=== PATIENT | male | born 1945 | race Caucasian/White ===

== ENCOUNTER → 2025-09-07 | Outpatient (CLI) | payer MEDICARE, SELFPAY ==
--- OUTSIDE RECORDS SUMMARY | 2025-09-07 12:01 | XMS RPT_ITS | CCD ---
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 Name Role Phone OneidaKrystinaTomasz Ref[facility] Mac Arenas Attending TOMASZ Caballero Attending [facility] TOMASZ Primary Care Unavailable CHAYNEYDALY Admitting Unavailable Allergies Allergy Classification Reported Allergen(s) Allergy Type Date of Onset Reaction(s) Facility (1 source) raNITIdine Drug Allergy 12-06-2024 [facility] Repository (1 source) raNITIdine Drug Allergy [facility] Repository Problems Problem Classification Problem Date Documented Da te Episodic/Chronic Disorders of lipid metabolism (1 source) Hyperlipidemia, unspecified; Translations: [Hyperlipidemia, unspecified] Onset: 08-06-2025 Chronic Essential hypertension (1 source) Essential (primary) hypertension; Translations: [Essential (primary) hypertension] Onset: 08-06-2025 Chronic Hyperplasia of prostate (1 source) Benign prostatic hyperplasia without lower urinary tract symptoms; Translations: [Benign prostatic hyperplasia without lower urinary tract symptoms] Onset: 08-06-2025 Chronic Results Test Name Value Interpretation Reference Range Facil ity CMP with eGFRon 08-06-2025 AGE 80 years Normal [facility] Comment on above: Performed By: #### 2 [id number] #### [facility],[address] [place] [address] 35538 Albumin [Mass/Vol] 3.6 g/dL Normal 3.4 - 5.[address] [facility] Comment on above: Performed By: #### 2 86731 #### [facility],[address] [place] [address] 20753 Albumin/Globulin [Mass ratio] 1.3 {ratio} Normal 0.9 - 1.6 [facility] Comment on above: Performed By: #### 2 49775 #### [facility],[address] [place] [address] 82965 ALK PHOS 95 U/L Normal 46 - 116 [facility] Comment on above: Performed By: #### 2 59334 #### [facility],[address] [place] [address] 21909 ALT [Catalytic activity/Vol] 22 U/L Normal 16 - 63 [facility] Comment on above: Performed By: #### 2 30458 #### [facility],[address] [place] [address] 40688 Anion gap [Moles/Vol] 6 mmol/L Low 10 - 20 [facility] Comment on above: Performed By: #### 2 74740 #### [facility],[address] [place] [address] 90972 AST [Catalytic activity/Vol] 20 U/L Normal 15 - 37 [facility] Comment on above: Performed By: #### 2 27084 #### [facility],[address] [place] [address] 56099 B/C RATIO 15 ratio Normal 0 - 30 [facility] Comment on above: Performed By: #### 2 51177 #### [facility],[address] [place] [address] 13501 Bilirubin [Mass/Vol] 0.9 mg/dL Normal 0.2 - 1.0 [facility] Comment on above: Performed By: #### 2 59425 #### [facility],[address] [place] [address] 02932 Calcium [Mass/Vol] 8.6 mg/dL Normal 8.5 - 10.[address] [facility] Comment on above: Performed By: #### 2 39357 #### [facility],[address] [place] [address] 25201 Chloride [Moles/Vol] 105 mmol/L Normal 98 - 107 [facility] Comment on above: Performed By: #### 2 75680 #### [facility],[address] [place] [address] 92681 CMP with eGFR Normal [facility] Comment on above: Result Comment: COMP REHENSIVE METABOLIC PANEL Performed By: #### 2 31230 #### [facility],[address] [place] [address] 85904 CO2 [Moles/Vol] 32.5 mmol/L High 21.0 - 32.0 [facility] Comment on above: Performed By: #### 2 99266 #### [facility],[address] [place] [address] 06523 Creatinine [Mass/Vol] 0.91 mg/dL Normal 0.70 - 1.30 [facility] Comment on above: Performed By: #### 2 59970 #### [facility],[address] [place] [address] 65286 GFR/1.73 sq M.predicted among non-blacks MDRD (S/P/Bld) [Vol rate/Area] mL/min/{1.73_m2} Normal 60 - 999 [facility] Comment on above: Performed By: #### 2 56494 #### [facility],[address] [place], [place] [address] Result Comment: ACCO RDING TO THE NATIONAL KIDNEY DISEASE EDUCATION PROGRAM(NKDE), A NORMAL eGFR IS A VALUE GREATER THAN OR EQUAL TO 60 ML/MIN/1.73 SQ METERS. CHRONIC KIDNEY DISEASE: <60mL/MIN/1.73 SQ METERS KIDNEY FAILURE: <15mL/MIN/1.73 SQ METERS THIS TEST SHOULD ONLY BE USED FOR PATIENTS 18 YEARS OF AGE AND OLDER. Globulin (S) [Mass/Vol] 2.8 g/dL Normal 1.5 - 3.8 [facility] Comment on above: Performed By: #### 2 38459 #### [facility],[address] [place] [address] 89507 Glucose [Mass/Vol] 107 mg/dL High 74 - [address] [facility] Comment on above: Performed By: #### 2 88767 #### [facility],[address] [place] [address] 90964 Potassium [Moles/Vol] 3.8 mmol/L Normal 3.5 - 5.1 [facility] Comment on above: Performed By: #### 2 15463 #### [facility],[address] [place] [address] 46427 Protein [Mass/Vol] 6.4 g/dL Normal 6.4 - 8.[address] [facility] Comment on above: Performed By: #### 2 18801 #### [facility],[address] [place] [address] 72863 Sodium [Moles/Vol] 140 mmol/L Normal 136 - [address] [facility] Comment on above: Performed By: #### 2 09020 #### [facility],[address] [place] [address] 20242 Urea nitrogen [Mass/Vol] 14 mg/dL Normal 7 - 18 [facility] Comment on above: Performed By: #### 2 16819 #### [facility],[address] [place] [address] 37859 LIPID PROFILEon 08-06-2025 Cholesterol [Mass/Vol] 118 mg/dL Normal 0 - 240 [facility] Comment on above: Performed By: #### 2 48525 #### [facility],[address] [place] [address] 80942 Cholesterol in HDL [Mass/Vol] 50 mg/dL Normal 40 - 60 [facility] Comment on above: Performed By: #### 2 81011 #### [facility],[address] [place] [address] 01999 Cholesterol in LDL [Mass/Vol] 59 mg/dL Normal 0 - 129 [facility] Comment on above: Performed By: #### 2 35633 #### [facility],[address] [place] [address] 70177 Cholesterol.total/C holesterol in HDL [Mass ratio] 2.4 {ratio} Normal 0.0 - 5.0 [facility] Comment on above: Performed By: #### 2 19723 #### [facility],[address] [place] [address] 09893 Lipid 1996 panel Normal [facility] Comment on above: Result Comment: LIPI D PROFILE Performed By: #### 2 40835 #### [facility],[address] [place] [address] 66950 Triglyceride [Mass/Vol] 44 mg/dL Normal 0 - 150 [facility] Comment on above: Performed By: #### 2 72856 #### [facility],[address] [place] [address] 06278 Surgery Visit Reporton 12-06 Surgery Visit Report [facility] [address] [place] [address]. [address] [place] [address] OFFICE VISIT Date of Service: 12/06/24 MR#: [id number] Acct: [id number] Name: JAMSHID SHEEHAN Peggy Rep #: [id number] : 1945 Provider: Dr. Mac nevarez MD Age/Sex: 79/M Location: [facility] Status: Signed Intake Vital Signs 12/06/24 14:09 Height 5 ft 7 in Weight: 182 lb BMI 28.5 BP 179/96 H Blood Pressure Location Rt brachial Position Sitting Respiration 17 Pulse 65 Pulse Source Monitor Pulse Oximetry (%) 97 Oxygen Delivery Method room air Intake Visit Reasons: VENTRAL HERNIA Chief Complaint: ventral hernia Is patient in pain?: No Allergies ranitidine Allergy (Mild, Verified 12/06/24 14:11) Rash Medications ???Medication ???Instructions ???Recorded ???Confirmed ???Type aspirin 81 mg tablet,delayed 81 mg PO QDAY 12/06/24 12/06/24 Hi story release (Adult Aspirin Regimen) atorvastatin 40 mg tablet 40 mg PO QDAY 12/06/24 12/06/24 Hi story finasteride 5 mg tablet 5 mg PO QDAY 12/06/24 12/06/24 His tory lisinopril 40 mg tablet 40 mg PO QDAY 12/06/24 12/06/24 Hi story sbbkqpcl-tqyaqa-ysl -flq-awk-tfiz-ryan tab PO QDAY 12/06/24 5 History 100 mg-100 mg-100 mg-125 mg tab (Tumersaid) Have you fallen in the past year?: No PFSH Medical History (Updated 12/06/24 @ 16:[address] Mac Khan MD) Rectus diastasis Heart attack Heart disease HTN (hypertension) Surgical History History of appendectomy H/O heart artery stent Family History Mother Cancer lung Social History Smoking Status: Never smoker HPI HPI HPI: The patient is a 79-year-old male who is being seen today for a possible ventral hernia. Patient states that recently when trying to sit upright from a supine position, he will noticed a linear bulge along the upper abdomen. This does not cause him any discomfort. Otherwise he states that his abdomen looks and feels normal. He presents today for further evaluation. He has had no previous abdominal surgeries involving his upper abdomen ROS General General: No weight change, appetite, fatigue, colon cancer, breast cancer or weakness HEENT HEENT: No difficulty swallowing, eye injury, eye surgery, swollen glands or hoarseness Endo Endocrine: No thyroid disease, diabetes mellitus, thyroid cancer, Hair loss, heat intolerance or cold intolerance Skin Skin: No rash or changing moles Musc Musculoskeletal: No back problems, arthritis, rheumatoid arthritis, gout or joint pain Cardio Cardiovascular: Yes heart disease, high blood pressure, heart attack and heart stent; No murmur, pacemaker, atrial fibrillation, palpitations, shortness of breat with exertion or chest pain Psych Psychiatric: No depression, anxiety or hearing voices Resp Respiratory: No shortness of breath, No sleep apnea, No cough, No COPD, No asthma, No emphysema and No wheezing Gastro Gastrointestinal: No abdominal pain, No nausea or vomiting, No diarrhea, No constipation, No blood in stool, No acid reflux, No hemorrhoids, No ulcers, No gallbladder problem and No black,tarry stools [place]illan Hematologic: No blood thinners, No blood disorders, No bleeding, No anemia and No blood clots Neuro Neurologic: No system reviewed and no additional complaints, except as documented, No as per HPI, No abnormal gait, No abnormal hearing, No abnormal movements, No abnormal speech, No behavioral changes, No burning sensations, No confusion, No convulsions, No disequilibrium, No dizziness, No localized weakness, No frequent falls, No headache(s), No lack of coordination, No loss of vision, No memory loss, No numbness, No other visual disturbances, No radicular pain, No restless legs, No sensory deficit, No syncope, No tingling, No tremor(s), No weakness and No other Exam Const General: cooperative, healthy appearing and comfortable [facility] Head: normal to inspection Eyes General: appearance normal, both eyes and all related structures Neck Neck: normal visual inspection Resp Effort Inspection: normal respiratory effort GI Other: Abdomen is soft, nontender nondistended. I had the patient go from a supine to an upright position, and clearly this demonstrated a rectus diastases. This was nontender. No obvious abdominal hernias were noted. Assessment and Plan Assessment and Plan (1) Rectus diastasis: Status: Acute Plan: The patient is a 79-year-old male who is being seen today for possible ventral hernia. On examination, he actually has a rectus diastases I explained to him that this is actually just a separation of the rectus (more content not included)... Normal [facility] COMPREHENSIVE METABOLIC PANE [facility] 02-16-2020 Albumin [Mass/Vol] 4.1 g/dL Normal 3.6-5.1 [facility] Comment on above: Performed By: #### 7 600, 78203 #### [facility] [id number] Mass Spectrometry Specialist: Domenic Ferris MD Albumin/Globulin [Mass ratio] 1.9 (calc) Normal 1.0-2.5 [facility] Comment on above: Performed By: #### 7 600, 97606 #### [facility] [address] Mass Spectrometry Specialist: Domenic Ferris MD ALP [Catalytic activity/Vol] 108 U/L Normal 35-144 [facility] Comment on above: Performed By: #### 7 600, 47802 #### [facility]-[address], [address] [place] [address] Mass Spectrometry Specialist: Domenic Ferris MD ALT [Catalytic activity/Vol] 16 U/L Normal 9-46 [facility] Comment on above: Performed By: #### 7 600, 86826 #### [facility]-[address], [address] [place] [address] Mass Spectrometry Specialist: Domenic Ferris MD AST [Catalytic activity/Vol] 19 U/L Normal 10-35 [facility] Comment on above: Performed By: #### 7 600, 58890 #### [facility]-[address], [address] [place] [address] Mass Spectrometry Specialist: Domenic Ferris MD Bilirubin [Mass/Vol] 1.1 mg/dL Normal 0.2-1.2 [facility] Comment on above: Performed By: #### 7 600, 22373 #### [facility]-[address], [address] [place] [address] Mass Spectrometry Specialist: Domenic Ferris MD Calcium [Mass/Vol] 9.0 mg/dL Normal 8.6-10.3 [facility] Comment on above: Performed By: #### 7 600, 99545 #### [facility] [address] Mass Spectrometry Specialist: Domenic Ferris MD Chloride [Moles/Vol] 106 mmol/L Normal 98-110 [facility] Comment on above: Performed By: #### 7 600, 81176 #### [facility] [address] Mass Spectrometry Specialist: Domenic Ferris MD CO2 [Moles/Vol] 28 mmol/L Normal 20-32 [facility] Comment on above: Performed By: #### 7 600, 09287 #### [facility]-[address], [address] [place] [address] Mass Spectrometry Specialist: Domenic Ferris MD Creatinine [Mass/Vol] 0.88 mg/dL Normal 0.70-1.18 [facility] Comment on above: Result Comment: For patients >49 years of age, the reference limit for Creatinine is approximately 13% higher for people identified as -Mongolian. Performed By: #### 7 600, 15738 #### [facility], [address] [place] [address] Mass Spectrometry Specialist: Domenic Ferris MD eGFR NON-AFR. FINNISH 85 mL/min/1.73m2 Normal > OR = 60 [facility] Comment on above: Performed By: #### 7 600, 00819 #### [facility]-[address], [address] [place] [address] Mass Spectrometry Specialist: Domenic Ferris MD GFR/1.73 sq M predicted among blacks MDRD (S/P/Bld) [Vol rate/Area] 98 mL/min/{1.73_m2} Normal > OR = 60 [facility] Comment on above: Performed By: #### 7 600, 83157 #### [facility], [address] [place] [address] Mass Spectrometry Specialist: Domenic Ferris MD Globulin (S) [Mass/Vol] 2.2 g/dL (calc) Normal 1.9-3.7 [facility] Comment on above: Performed By: #### 7 600, 49657 #### [facility] [address] Mass Spectrometry Specialist: Domenic Ferris MD Glucose [Mass/Vol] 99 mg/dL Normal 65-99 [facility] Comment on above: Result Comment: Fasting reference interval Performed By: #### 7 600, 99132 #### [facility], [address] [place] [address] Mass Spectrometry Specialist: Domenic Ferris MD Potassium [Moles/Vol] 4.0 mmol/L Normal 3.5-5.3 [facility] Comment on above: Performed By: #### 7 600, 64615 #### [facility], [address] [place] [address] Mass Spectrometry Specialist: Domenic Ferris MD Protein [Mass/Vol] 6.3 g/dL Normal 6.1-8.1 [facility] Comment on above: Performed By: #### 7 600, 66644 #### [facility]-[address], [address] [place] [address] Mass Spectrometry Specialist: Domenic Ferris MD Sodium [Moles/Vol] 141 mmol/L Normal 135-146 [facility] Comment on above: Performed By: #### 7 600, 02979 #### [facility]-[address], [address] [place] [address] Mass Spectrometry Specialist: Domenic Ferris MD Urea nitrogen [Mass/Vol] 11 mg/dL Normal 7-25 [facility] Comment on above: Performed By: #### 7 600, 78195 #### [facility]-[address], [address] [place] [address] Mass Spectrometry Specialist: Domenic Ferris MD Urea nitrogen/Creatinine [Mass ratio] NOT APPLICABLE Normal 6-22 [facility] Comment on above: Performed By: #### 7 600, 86344 #### [facility]-[address], [address] [place] [address] Mass Spectrometry Specialist: Domenic Ferris MD LIPID PANEL, [facility] Cholesterol [Mass/Vol] 132 mg/dL Normal <200 [facility] Comment on above: Performed By: #### 7 600, 44288 #### [facility], [address] [place] [address] Mass Spectrometry Specialist: Domenic Ferris MD Cholesterol in HDL [Mass/Vol] 41 mg/dL Normal > OR = 40 [facility] Comment on above: Performed By: #### 7 600, 13656 #### [facility]-[address], [address] [place] [address] Mass Spectrometry Specialist: Domenic Ferris MD Cholesterol in LDL [Mass/Vol] 77 mg/dL (calc) Normal [facility] Comment on above: Result Comment: Refe rence range: <100 Desirable range <100 mg/dL for primary prevention; <70 mg/dL for patients with CHD or diabetic patients with > or = 2 CHD risk factors. LDL-C is now calculated using the Elan-Fisher calculation, which is a validated novel method providing better accuracy than the Friedewald equation in the estimation of LDL-C. Elan HUTCHINSON et al. SIMONA. 2013;310(19): 8264-0964 (http://education.Epuramat/faq/LDF636) Performed By: #### 7 600, 49124 #### [facility]-[address], [address] [place] [address] Mass Spectrometry Specialist: Domenic Ferris MD Cholesterol.total/C holesterol in HDL [Mass ratio] 3.2 (calc) Normal <5.0 [facility] Comment on above: Performed By: #### 7 600, 60081 #### [facility]-[address], [address] [place] [address] Mass Spectrometry Specialist: Domenic Ferris MD NON HDL CHOLESTEROL 91 mg/dL (calc) Normal <130 [facility] Comment on above: Result Comment: For patients with diabetes plus 1 major ASCVD risk factor, treating to a non-HDL-C goal of <100 mg/dL (LDL-C of <70 mg/dL) is considered a therapeutic option. Performed By: #### 7 600, 42780 #### [facility]-[address], [address] [place] [address] Mass Spectrometry Specialist: Domenic Ferris MD Triglyceride [Mass/Vol] 68 mg/dL Normal <150 [facility] Comment on above: Performed By: #### 7 600, 33470 #### [facility]-[address], [address] [place] [address] Mass Spectrometry Specialist: Domenic Ferris MD Encounters Encounter Date Encounter Type Care Provider Facility Start: 08-06-2025 End: 08-06-2025 ambulatory [facility] Start: 12-06-2024 End: 12-06-2024 ambulatory [facility] Facility:[facility] Procedures Date Procedure Procedure Detail Performing Clinician Start: 08-06-2025 PSA screening [facility] Comment on above: Performed By: #### 2 86026 #### [facility],[address] [place] [address] Payers Date Payer Category Payer Self-pay 2024 Unknown [id number] 1945 Unknown [id number] Unknown [id number] Summary Purpose Family History No Family History Records FoundNo Family History Records FoundNo Family History Records Found Advance Directives No Advanced Directives Records FoundNo Advanced Directives Records FoundNo Advanced Directives Records Found Additional Source Comments (unrecognized sect ion and content) No Status Records FoundNo Status Records FoundNo Status Records Found INFORMATION SOURCE (unrecogn ized section and content) DATE CREATED AUTHOR 02/23/2020 [facility] DATE CREATED AUTHOR AUTHOR'S ORGANIZ ATION 12/06/2024 [facility] DATE CREATED AUTHOR AUTHOR'S ORGANIZ ATION 08/07/2025 [facility] FOR RECORDS PERTAINING TO PATIENTS WHO ARE OR HAVE BEEN ENROLLED IN A CHEMICAL DEPENDENCY/SUBSTANCEABUSE PROGRAM, SOME INFORMATION MAY BE OMITTED. This clinical summary was aggregated from multiple sources. Caution should be exercised in using it in the provision of clinical care. This summary normalizes information from multiple sources, and as a consequence, information in this document may materially change the coding, format and clinical context of patient data. In addition, data may be omitted in some cases. CLINICAL DECISIONS SHOULD BE BASED ON THE PRIMARY CLINICAL RECORDS. [facility] [employer] [facility]. provides no warranty or guarantee of the accuracy or completeness of information in this document.
== END | disposition home or self-care (01) ==
PROVIDERS: PCP Family Medicine; Visit Provider Physician Assistant Surgical
DX: M54.9 Dorsalgia, unspecified (principal)
CPT/HCPCS: 87086; 87088